=== PATIENT | female | born 1990 | race Caucasian/White ===

== ENCOUNTER 2016-12-27 00:33 | Emergency (ER) | payer MEDICAID ==
--- NOTE | 2016-12-27 01:06 | ED ---
Skin Complaint - HPI Summary HPI Summary: 26F presents with bug bites across entire body for a week. She states she got multiple flee bites in one night. She states she has been using Benadryl, hydrocortisone, calamine lotion without relief. She denies any chest pain, SOB , difficulty swallowing, or fever. She is concerned that they have gotten infected. She states the area is very itchy and is wondering what else she can do? - History of Current Complaint Chief Complaint: EDRashSkinAbscess Time Seen by Provider: 12/27/16 00:46 Stated Complaint: BUG BITES Pain Intensity: 0 - Allergy/Home Medications Allergies/Adverse Reactions: Allergies Allergy/AdvReac Type Severity Reaction Status Date / Time No Known Allergies Allergy Verified 11/15/15 12:49 PMH/Surg Hx/FS Hx/Imm Hx Endocrine/Hematology History: Denies: Hx Anticoagulant Therapy Cardiovascular History: Denies: Hx Hypertension - Surgical History Surgery Procedure, Year, and Place: [facility] 2009. Tonsilectomy Infectious Disease History: Denies: Traveled Outside the [place] in Last 30 Days - Family History Known Family History: Positive: Unknown - Social History Alcohol Use: None Substance Use Type: Reports: None Smoking Status (MU): Never Smoked Tobacco Review of Systems Negative: Fever Negative: Chest Pain Negative: Shortness Of Breath Positive: Rash All Other Systems Reviewed And Are Negative: Yes Physical Exam Triage Information Reviewed: Yes Vital Signs On Initial Exam: Initial Vitals Temp Pulse Resp BP Pulse Ox 97.2 F 108 18 137/77 99 12/27/16 00:40 12/27/16 00:40 12/27/16 00:40 12/27/16 00:40 12/27/16 00:40 Vital Signs Reviewed: Yes Appearance: Positive: Well-Appearing Skin: Positive: Warm, Dry, Other - multiple bug bites across body with excoriation Head/Face: Positive: Normal Head/Face Inspection Eyes: Positive: Normal, EOMI, ROD, Conjunctiva Clear ENT: Positive: Normal ENT inspection, Pharynx normal, TMs normal Respiratory/Lung Sounds: Positive: Clear to Auscultation, Breath Sounds Present Cardiovascular: Positive: Normal, RRR Diagnostics - Vital Signs Vital Signs Temp Pulse Resp BP Pulse Ox 12/27/16 00:40 97.2 F 108 18 137/77 99 - Laboratory Lab Statement: Any lab studies that have been ordered have been reviewed, and results considered in the medical decision making process. Course/Dx - Course Course Of Treatment: 26F presents with bug bites across entire body for a week. She states she got multiple flee bites in one night. She states she has been using Benadryl, hydrocortisone, calamine lotion without relief. She denies any chest pain, SOB, difficulty swallowing, or fever. She is concerned that they have gotten infected. on exam multiple bug bites without any sign of infection, explained nothing else can add. patient understands and agrees with plan - Differential Diagnoses - Skin Complaint Differential Diagnoses: Cellulitis, Contact Dermatitis, Other - bug bites - Diagnoses Provider Diagnoses: Bug bites Discharge - Discharge Plan Condition: Good Disposition: HOME Patient Education Materials: Insect Bite or Sting (ED) Referrals: Jensen Griffiths MD [Primary Care Provider] - Additional Instructions: Use hydrocortisone twice a day Place calamine lotion on the area Use bendaryl one tablet at night, zytrec once a day in morning Avoid itching the area Return to ED if develop or new or worsening symptoms
[2016-12-27 01:17] VITALS: BP 137/71
== END 2016-12-27 01:17 | disposition home or self-care (01) ==
LOC: ED 00:33
DX: S80.862A Insect bite (nonvenomous), left lower leg, initial encounter (principal); S80.861A Insect bite (nonvenomous), right lower leg, initial encounter; S40.862A Insect bite (nonvenomous) of left upper arm, initial encounter; S40.861A Insect bite (nonvenomous) of right upper arm, initial encounter; S20.469A Insect bite (nonvenomous) of unspecified back wall of thorax, initial encounter; W57.XXXA Bitten or stung by nonvenomous insect and other nonvenomous arthropods, initial encounter; Y93.9 Activity, unspecified; Y92.9 Unspecified place or not applicable; Z90.49 Acquired absence of other specified parts of digestive tract
CPT/HCPCS: 99281

== ENCOUNTER 2017-08-11 14:32 | Emergency (ER) | payer OTHER ==
[2017-08-11 15:44] LABS: ABS Basophils 0.1 10^3/ul (0-0.2); ABS Eosinophils 0.1 10^3/ul (0-0.6); ABS Lymphocytes 3.1 10^3/ul (1.0-4.8); ABS Monocytes 0.7 10^3/ul (0-0.8); ABS Neutrophils 5.4 10^3/ul (1.5-7.7); ABS Nucleated RBC 0 10^3/ul; Eosinophil % 0.9 % (0-6); Hematocrit 41 % (35-47); Lymphocyte % 33.2 % (25-47); Mean Corpuscular HGB Conc 34 g/dl (31-36); Mean Corpuscular Hemoglobin 29 pg (27-31); Mean Corpuscular Volume 85 fL (80-97); Mean Platelet Volume 9 um3 (7.4-10.4); Nucleated Red Blood Cells % 0.1; Platelet Count 246 10^3/ul (150-450); Red Blood Count 4.78 10^6/ul (4.0-5.4); Red Cell Distribution Width 13 % (10.5-15); White Blood Count 9.4 10^3/ul (3.5-10.8)
[2017-08-11 15:53] LABS: INR 0.93 (0.77-1.02)
[2017-08-11 16:00] LABS: EGFR Non-African American 97.9 (>60)
[2017-08-11 16:21] LABS: Urine Appearance Cloudy; Urine Blood Negative (Negative); Urine Color Yellow; Urine Ketones Negative (Negative); Urine Protein 1+(30 mg/dL) (Negative); Urine Specific Gravity 1.027 (1.010-1.030); Urine Urobilinogen Negative (Negative)
[2017-08-11 16:34] VITALS: BP 134/42
--- NOTE | 2017-08-12 08:18 | ED ---
Tray Barahona Angela, scribed for Jensen Mott MD on 08/11/17 at 1502 . GI/ HPI - HPI Summary HPI Summary: This pt is a 26 y/[facility] intermittent rectal bleeding for the past 3 months. Pt reports her rectal bleeding has become heavier within the past few days. She states rectal bleeding happens when she sits down and after she moves her bowel and goes to wipe. Pt notes she sometimes strains for a bowel movement. She reports sometimes has abdominal bloating. Denies abd pain , nausea, vomiting, rectal pain. She states she has not been seen by a PCP because she just received insurance. PMHx: cholecystectomy. - History of Current Complaint Chief Complaint: EDGIBleed Time Seen by Provider: 08/11/17 14:46 Stated Complaint: BLOODY STOOL Hx Obtained From: Patient Onset/Duration: Started Weeks Ago, Still Present Timing: Intermittent, Lasting Weeks Current Severity: None Pain Intensity: 0 - denies pain Associated Signs and Symptoms: Positive: Other: - rectal bleeding. Negative: Nausea, Vomiting, Rectal Pain, Hematuria, Abdominal Pain - Allergy/Home Medications Allergies/Adverse Reactions: Allergies Allergy/AdvReac Type Severity Reaction Status Date / Time No Known Allergies Allergy Verified 11/15/15 12:49 PMH/Surg Hx/FS Hx/Imm Hx Endocrine/Hematology History: Denies: Hx Anticoagulant Therapy Cardiovascular History: Denies: Hx Hypertension - Surgical History Surgery Procedure, Year, and Place: [facility] 2009. Tonsilectomy Infectious Disease History: No Infectious Disease History: Denies: Traveled Outside the [place] in Last 30 Days - Family History Known Family History: Positive: None - Social History Alcohol Use: None Substance Use Type: Reports: None Smoking Status (MU): Never Smoked Tobacco Review of Systems Negative: Fever, Chills Eyes: Negative ENT: Negative Cardiovascular: Negative Gastrointestinal: Other - rectal bleeding Negative: Abdominal Pain, Vomiting, Nausea, Other - rectal pain Musculoskeletal: Negative Skin: Negative Neurological: Negative All Other Systems Reviewed And Are Negative: Yes Physical Exam - Summary Physical Exam Summary: VITAL SIGNS: Reviewed. GENERAL: Patient is a well-developed and nourished female who is lying comfortable in the stretcher. Patient is not in any acute respiratory distress. HEAD AND FACE: No signs of trauma. No ecchymosis, hematomas or skull depressions. No sinus tenderness. EYES: PERRLA, EOMI x 2, No injected conjunctiva, no nystagmus. EARS: Hearing grossly intact. Ear canals and tympanic membranes are within normal limits. MOUTH: Oropharynx within normal limits. NECK: Supple, trachea is midline, no adenopathy, no JVD, no carotid bruit, no c- spine tenderness, neck with full ROM. CHEST: Symmetric, no tenderness at palpation LUNGS: Clear to auscultation bilaterally. No wheezing or crackles. CVS: Regular rate and rhythm, S1 and S2 present, no murmurs or gallops appreciated. ABDOMEN: Soft, non-tender. No signs of distention. No rebound no guarding, and no masses palpated. Bowel sounds are normal. 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 No gross blood. No hemorrhoids. No melena. EXTREMITIES: FROM in all major joints, no edema, no cyanosis or clubbing. NEURO: Alert and oriented x 3. No acute neurological deficits. Speech is normal and follows commands. SKIN: Dry and warm Triage Information Reviewed: Yes Vital Signs On Initial Exam: Initial Vitals Temp Pulse Resp BP Pulse Ox 97.4 F 115 18 161/94 99 08/11/17 14:37 08/11/17 14:37 08/11/17 14:37 08/11/17 14:37 08/11/17 14:37 Vital Signs Reviewed: Yes Diagnostics - Vital Signs Vital Signs Temp Pulse Resp BP Pulse Ox 08/11/17 14:37 97.4 F 115 18 161/94 99 - Laboratory Result Diagrams: 08/11/17 15:32 08/11/17 15:32 Lab Statement: Any lab studies that have been ordered have been reviewed, and results considered in the medical decision making process. Re-Evaluation - Re-Evaluation First Eval Re-Evaluation Time: 16:29 Comment: I reviewed lab results with the pt. GIGU Course/Dx - Course Assessment/Plan: This pt is a 26 y/[facility] female [facility] [place]/[facility] intermittent rectal bleeding for the past 3 months. Pt reports her rectal bleeding has become heavier within the past few days. She states rectal bleeding happens when she sits down and after she moves her bowel and goes to wipe. Pt notes she sometimes strains for a bowel movement. She reports sometimes has abdominal bloating. Denies abd pain, nausea, vomiting, rectal pain. Test results without any significant abnormalities. The stool occult blood is negative. At this point I discussed the test results and findings with the pt and the need to follow up with a PCP. She reports she is constipated therefore she will be given prescription for Miralax. Pt will be discharged to home with a referral to establish a PCP. Pt is hemodynamically stable, alert and oriented x3. - Diagnoses Provider Diagnoses: Stable rectal bleed, Constipation Discharge - Discharge Plan Condition: Stable Disposition: HOME Prescriptions: Polyethylene Glycol 3350* [Miralax*] 17 gm PO DAILY #12 packet Patient Education Materials: Constipation (ED) Referrals: [facility]YSICIAN REFERRAL [Outside] Additional Instructions: Please establish a primary care provider and follow up. RETURN TO THE ED FOR ANY WORSENING SYMPTOMS. The documentation as recorded by the Tray cordoba Angela accurately reflects the service I personally performed and the decisions made by , Jensen Mott MD.
== END 2017-08-11 16:37 | disposition home or self-care (01) ==
LOC: ED 14:32
DX: K62.5 Hemorrhage of anus and rectum (principal); K59.00 Constipation, unspecified
CPT/HCPCS: 36415; 80053; 81003; 81015; 82270; 83690; 84702; 85025; 85610; 85730; 86140; 86850; 86900; 86901; 87086; 99282

== ENCOUNTER 2024-04-09 06:11 | Observation (INO) ==
[2024-04-09 06:55] LABS: ABS Basophils 0.2 10^3/uL (0.0-0.1); ABS Eosinophils 0.3 10^3/uL (0.0-0.5); ABS Lymphocytes 2.9 10^3/uL (1.0-4.8); ABS Monocytes 1.1 10^3/uL (0.0-0.9); ABS Neutrophils 11.8 10^3/uL (1.5-7.6); Eosinophil % 2.1 %; Hematocrit 43.8 % (35-45); Lymphocyte % 17.7 %; Mean Corpuscular Hemoglobin 29.6 pg (27-33); Mean Corpuscular Hgb Conc 34.2 g/dL (31-36); Mean Corpuscular Volume 86.5 fL (80-97); Mean Platelet Volume 8.9 fL (7.5-11.2); Platelet Count 276 10^3/uL (150-450); Red Blood Count 5.07 10^6/uL (3.63-4.92); Red Cell Distribution Width 13.5 % (12-17); White Blood Count 16.3 10^3/uL (3.8-11.8)
[2024-04-09 07:00] LABS: INR 0.93 (0.85-1.14)
[2024-04-09] MEDS: NS 0.9% 1000 ml BAG 1,000 ML IV ONE ×2 (07:14→08:59)
[2024-04-09 07:43] LABS: Albumin 4.7 g/dL (3.2-5.2); Albumin/Globulin Ratio 1.7 (1-3); Calcium 9.8 mg/dL (8.6-10.3); Creatinine, Serum 0.77 mg/dL (0.51-0.95); Globulin 2.8 g/dL (2-4); Potassium 4.2 mmol/L (3.5-5.0); Total Bilirubin 0.4 mg/dL (0.2-1.0); Total Protein 7.5 g/dL (6.4-8.9); eGFR CKD-EPI 104.4 (>60)
[2024-04-09 08:20] LABS: High Sensitivity Troponin 1 Hr 13 pg/mL (<15)
[2024-04-09] MEDS: Iohexol 350 (CONTRAST) 500 ML MDV IV ONE (08:46)
[2024-04-09] MEDS ORDERED: Ondansetron 4 mg VIAL 2 MG/ML 2 ml VIAL ONE ×2 (10:01→13:19)
[2024-04-09] MEDS: Ondansetron 4 mg VIAL 2 MG/ML 2 ml VIAL IV ONE ×2 (10:02→13:28)
[2024-04-09] MEDS ORDERED: Senna TAB 8.6 mg TAB PO PRN (12:01)
[2024-04-09] MEDS ORDERED: Polyethylene Glycol 3350 17 GM PACKET PO PRN (12:01)
[2024-04-09] MEDS ORDERED: Ondansetron 4 mg VIAL 2 MG/ML 2 ml VIAL IV PRN (13:24)
[2024-04-09] MEDS: Prochlorperazine 5 mg/ml 2 ml VIAL (10 mg) IV ONE (15:24)
[2024-04-09] MEDS ORDERED: Prochlorperazine 5 mg/ml 2 ml VIAL (10 mg) IV PRN (17:24)
[2024-04-10 06:40] LABS: ABS Basophils 0.1 10^3/uL (0.0-0.1); ABS Eosinophils 0.2 10^3/uL (0.0-0.5); ABS Lymphocytes 2.6 10^3/uL (1.0-4.8); ABS Monocytes 0.6 10^3/uL (0.0-0.9); ABS Neutrophils 6.2 10^3/uL (1.5-7.6); Eosinophil % 2.4 %; Hematocrit 39.8 % (35-45); Hemoglobin 13.6 g/dL (11.5-14.3); Lymphocyte % 26.5 %; Mean Corpuscular Hemoglobin 29.3 pg (27-33); Mean Corpuscular Hgb Conc 34.3 g/dL (31-36); Mean Corpuscular Volume 85.5 fL (80-97); Mean Platelet Volume 9.3 fL (7.5-11.2); Platelet Count 252 10^3/uL (150-450); Red Blood Count 4.65 10^6/uL (3.63-4.92); Red Cell Distribution Width 13.4 % (12-17); White Blood Count 9.7 10^3/uL (3.8-11.8)
[2024-04-10 08:56] LABS: Albumin 4.5 g/dL (3.2-5.2); Albumin/Globulin Ratio 1.7 (1-3); Calcium 9.6 mg/dL (8.6-10.3); Creatinine, Serum 0.67 mg/dL (0.51-0.95); Globulin 2.6 g/dL (2-4); Potassium 4.1 mmol/L (3.5-5.0); Total Bilirubin 1.1 mg/dL (0.2-1.0); Total Protein 7.1 g/dL (6.4-8.9); eGFR CKD-EPI 118.3 (>60)
[2024-04-10] MEDS: Sulfur Hexaflouride MICROSPHR 25 MG VIAL IV PRN (16:20)
[2024-04-10 16:49] LABS: C Reactive Protein 6.05 mg/L (<8.01)
[2024-04-10] MEDS: Gadoteridol (CONTRAST) 279.3 MG/ML 10 ML IV ONE (21:00)
[2024-04-11 10:05] VITALS: BP 134/85
== END 2024-04-11 13:23 | disposition home or self-care (01) ==
LOC: ED 06:11 → EDHOLD 06:11 → SUATTDRO 12:03 → MEDTELE 14:01
PROVIDERS: ADMIT Internal Medicine; ATTEND Student in an Organized Health Care Education/Training Program